=== PATIENT | male | born 1950 | race Caucasian/White ===

== ENCOUNTER 2018-07-28 18:27 | Emergency (ER) | payer BC ==
[2018-07-28 18:59] VITALS: BP 139/86
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
== END 2018-07-28 19:15 | disposition home health service (06) ==
LOC: UCCORT 18:27
DX: M79.89 Other specified soft tissue disorders (principal); I48.91 Unspecified atrial fibrillation; Z79.01 Long term (current) use of anticoagulants; Z88.2 Allergy status to sulfonamides
CPT/HCPCS: 99202; G0463

== ENCOUNTER 2018-10-12 12:39 | Emergency (ER) | payer BC ==
[2018-10-12 12:55] VITALS: BP 137/89
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
== END 2018-10-12 13:59 | disposition home or self-care (01) ==
LOC: UCCORT 12:39
DX: M25.572 Pain in left ankle and joints of left foot (principal); Z88.2 Allergy status to sulfonamides
CPT/HCPCS: 99211; G0463

== ENCOUNTER 2019-03-09 13:39 | Emergency (ER) | payer BC, OTHER ==
[2019-03-09 14:35] VITALS: BP 102/69
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
== END 2019-03-09 15:27 | disposition home or self-care (01) ==
LOC: UCCORT 13:39
DX: J06.9 Acute upper respiratory infection, unspecified (principal); J98.01 Acute bronchospasm; R05 Cough; R09.89 Other specified symptoms and signs involving the circulatory and respiratory systems; I48.91 Unspecified atrial fibrillation; I11.0 Hypertensive heart disease with heart failure; I50.9 Heart failure, unspecified; Z82.49 Family history of ischemic heart disease and other diseases of the circulatory system; Z88.2 Allergy status to sulfonamides
CPT/HCPCS: 99212; G0463